=== PATIENT | male | born 1960 | race Caucasian/White ===

== ENCOUNTER 2018-08-16 11:15 | Emergency (ER) | payer SELFPAY ==
[~2018-08-16] VITALS: Ht 175.3 cm; Wt 121.6 kg
[2018-08-16] MEDS ORDERED: IBUP100O19 PO (11:37)
--- NOTE | 2018-08-16 11:59 | NUR ---
DR GILES AT THE BEDSIDE FOR MSE.
[2018-08-16 12:27] LABS: BASOPHILS # (AUTO) 0.1 K/uL (0.0-8.0); BASOPHILS % (AUTO) 0.9 % (0.0-2.0); EOSINOPHILS # (AUTO) 0.3 K/uL (0.0-0.7); EOSINOPHILS % (AUTO) 4.4 % (0.0-7.0); HEMATOCRIT 43.5 % (36.7-47.1); HEMOGLOBIN 15.1 g/dL (12.5-16.3); LYMPHOCYTES # (AUTO) 1.7 K/uL (20.0-40.0); LYMPHOCYTES % (AUTO) 23.3 % (20.5-51.5); MEAN CORPUSCULAR HEMOGLOBIN 32.6 uug (23.8-33.4); MEAN CORPUSCULAR HGB CONC 35 g/dL (32.5-36.3); MEAN CORPUSCULAR VOLUME 93.8 fL (73.0-96.2); MONOCYTES # (AUTO) 0.5 K/uL (2.0-10.0); MONOCYTES % (AUTO) 6.9 % (0.0-11.0); NEUTROPHILS # (AUTO) 4.6 K/uL (1.8-8.9); NEUTROPHILS % (AUTO) 64.5 % (38.5-71.5); PLATELET COUNT (AUTO) 194 K/uL (152-348); RED BLOOD CELL COUNT(AUTO) 4.64 MIL/uL (4.06-5.63); WHITE BLOOD COUNT (AUTO) 7.1 K/uL (3.6-10.2)
[2018-08-16 12:36] LABS: CREATININE 0.8 mg/dL (0.6-1.3)
[2018-08-16 12:41] LABS: BILIRUBIN,DIRECT 0.1 mg/dL (0.0-0.2); BILIRUBIN,TOTAL 0.3 mg/dL (0.2-1.0); TOTAL PROTEIN, SERUM 7.1 g/dL (6.4-8.2)
--- NOTE | 2018-08-16 13:40 | NUR ---
DR GILES MADE PATIENT AWARE OF TEST RESULTS WILL DC HOME.
[2018-08-16] MEDS ORDERED: predniSONE 20 MG TABLET PO ONE (13:45)
[2018-08-16] MEDS ORDERED: predniSONE 10 MG TABLET ONE (13:46)
[2018-08-16] MEDS ORDERED: predniSONE 50 MG TABLET ONE (13:46)
--- NOTE | 2018-08-16 13:48 | NUR ---
Patient discharged to home in stable conditon. Written and verbal after care instructions given. Patient verbalizes understanding of instructions.
[2018-08-16 13:49] VITALS: BP 110/68
== END 2018-08-16 13:51 | disposition home or self-care (01) ==
LOC: ER 11:15
DX: M17.12 Unilateral primary osteoarthritis, left knee (principal); R07.89 Other chest pain; F17.200 Nicotine dependence, unspecified, uncomplicated; Z79.1 Long term (current) use of non-steroidal anti-inflammatories (NSAID)
CPT/HCPCS: 36415; 70450; 71045; 72125; 73564; 80048; 80076; 84484; 85025; 85730; 93005; 99284; J7512 ×2; 70030-TC; A4663